=== PATIENT | male | born 1980 | race Caucasian/White ===

== ENCOUNTER 2018-04-02 08:28 | Observation (INO) | payer OTHER ==
[~2018-04-02] VITALS: Ht 198.1 cm; Wt 81.7 kg
[~2018-04-02 08:28] MED LIST: Crutch1 EACH MISC; Ultram50 MG PO
[2018-04-02 09:24] LABS: BASOPHILS ABSOLUTE AUTO 0.11 K/mm3 (0.00-0.23); BASOPHILS PERCENT AUTO 1 % (0-2); EOSINOPHILS ABSOLUTE AUTO 0.53 K/mm3 (0.00-0.68); EOSINOPHILS PERCENT AUTO 4 % (0-6); Hematocrit 40.7 % (37.0-53.0); Hemoglobin 14.4 g/dL (13.5-17.5); IMMATURE GRAN ABSOLUTE AUTO 0.08 K/mm3 (0.00-0.10); IMMATURE GRAN PERCENT AUTO 1 % (0-1); LYMPHOCYTES ABSOLUTE AUTO 3.18 K/mm3 (0.84-5.20); LYMPHOCYTES PERCENT AUTO 26 % (21-46); MONOCYTES ABSOLUTE AUTO 0.86 K/mm3 (0.16-1.47); MONOCYTES PERCENT AUTO 7 % (4-13); Mean Corpuscular HGB 34.1 pg (26.0-34.0); Mean Corpuscular HGB Conc 35.4 g/dL (31.5-36.5); Mean Corpuscular Volume 96 fL (80-100); Mean Platelet Volume 9.7 fL (9.1-12.4); NEUTROPHILS ABSOLUTE AUTO 7.62 K/mm3 (1.96-9.15); NEUTROPHILS PERCENT AUTO 62 % (41-73); Platelet Count 296 K/mm3 (150-400); RDW Coefficient Variation 12.6 % (11.7-14.2); Red Blood Cell Count 4.22 M/mm3 (4.30-5.90); White Blood Cell Count 12.38 K/mm3 (4.00-11.30)
[2018-04-02 09:39] LABS: Alanine Aminotransfer (ALT/SGP 22 U/L (12-78); Albumin, Blood 4.4 g/dL (3.4-5.0); Albumin/Globulin Ratio 1.2 (0.8-1.8); Alk Phos 57 U/L (50-136); Anion Gap 6 mmol/L (6-16); Aspartate Aminotrans (AST/SGOT 23 U/L (12-37); Bilirubin, Total 0.5 mg/dL (0.1-1.0); Blood Urea Nitrogen 13 mg/dL (8-24); Bun/Creatinine Ratio 17.8 (12.0-20.0); CO2, Blood 28 mmol/L (21-32); Calcium, Blood 8.3 mg/dL (8.5-10.1); Chloride, Blood 104 mmol/L (98-108); Creatinine, Blood 0.73 mg/dL (0.60-1.20); Globulin, Blood 3.6 g/dL (2.2-4.0); Glomerular Filtration Rate >60 (60-); Glucose, Blood 91 mg/dL (70-99); Potassium, Blood 3.3 mmol/L (3.5-5.5); Sodium, Blood 138 mmol/L (136-145)
[2018-04-02 09:49] LABS: International Normalized Ratio 0.99; Prothrombin Time Results 10.5 Sec (9.7-11.5)
[2018-04-02 12:07] LABS: Hematocrit 36.8 % (37.0-53.0); Hemoglobin 13.3 g/dL (13.5-17.5)
--- NOTE | 2018-04-02 19:46 | NUR ---
04/02/181945 Liliam Montero History, Chart, Medications and Allergies reviewed before start of procedure.Patient confirms NPO status and agrees with scheduled surgery.ANESTHESIA CASE, SEE RECORD FOR CARE.
[2018-04-02 21:25] LABS: Hematocrit 37.6 % (37.0-53.0); Hemoglobin 13.3 g/dL (13.5-17.5)
--- NOTE | 2018-04-02 21:48 | NUR ---
PT RETURNED FROM EGD AWAKE, ALERT AND SOMEWHAT RESTLESS. PT VERY QUICKLY WANTED TO GO OUTSIDE TO SMOKE. PT WAS TAKEN OUTSIDE BY HIS FAMILY IN A W/C FOR HIS SAFETLY SINCE HE IS STILL RECOVERING FROM ANTHESIA. PT RETURNED FROM SMOKING AND IMMEDIATELY REQUESTED THAT HIS TWO IV'S BE REMOVED BECAUSE HE WANTED TO LEAVE SOON HIS H/H RETURNED FROM LAB. PT WAS REDIRECTED FOR A SHORT WHILE, BUT HE CONTINUED TO WANDERIN AROUND THE HALLWAY OUTSIDE OF HIS ROOM. WHEN HIS H/H RETURNED, HE WAS NOTIFIED THAT HIS HGB WAS 13.2. HE IMMEDIATELY STATED THAT "THE DOCTOR SAID THAT I COULD GO IF MY BLOOD WORK OKAY." HE INSISTED THAT HE WANTS TO LEAVE IMMEDIATELY. PT INSISTED THAT HIS IV'S BE REMOVED IMMEDIATELY. THE CHARGE NURSE CALLED THE HOSPITALIST FOR DISCHARGE ORDERS. PT AND HIS FAMILY ARE NOW WAITING FOR A DECISION ABOUT HIS DISCHARGE. PT'S FAMILY DENIES THAT PT IS DETOXING OR THAT HE DRINKS EVERY DAY.
== END 2018-04-02 21:57 | disposition home or self-care (01) ==
LOC: ER 08:28 → MEDS 08:29
PROVIDERS: Internal Medicine Gastroenterology; Physician Assistant; ADMIT Internal Medicine
PROC: 0DJ08ZZ Inspection of Upper Intestinal Tract, Via Natural or Artificial Opening Endoscopic (ICD-10-PCS; principal; 2018-04-02 18:00)
DX: K22.6 Gastro-esophageal laceration-hemorrhage syndrome (principal); K20.9 Esophagitis, unspecified; K29.00 Acute gastritis without bleeding; D64.9 Anemia, unspecified; F10.20 Alcohol dependence, uncomplicated; E87.6 Hypokalemia; M77.11 Lateral epicondylitis, right elbow; R20.0 Anesthesia of skin; F17.210 Nicotine dependence, cigarettes, uncomplicated; F17.220 Nicotine dependence, chewing tobacco, uncomplicated
CPT/HCPCS: 36415; 71045; 80053; 85014; 85018; 85025; 85610; 85730; 86850; 86900; 86901; 96361; 96365; 96366; 96374; 96375; 96376; 99285-25; C9113; G0378; J2250; J3475; J3480; J7030; J7042; J7120

== ENCOUNTER 2018-11-21 19:45 | Emergency (ER) | payer OTHER ==
[~2018-11-21] VITALS: Ht 195.6 cm; Wt 84.8 kg
[2018-11-21 20:03] LABS: BASOPHILS ABSOLUTE AUTO 0.18 K/mm3 (0.00-0.23); BASOPHILS PERCENT AUTO 1 % (0-2); EOSINOPHILS ABSOLUTE AUTO 0.49 K/mm3 (0.00-0.68); EOSINOPHILS PERCENT AUTO 3 % (0-6); Hematocrit 41.7 % (37.0-53.0); IMMATURE GRAN ABSOLUTE AUTO 0.27 K/mm3 (0.00-0.10); IMMATURE GRAN PERCENT AUTO 2 % (0-1); LYMPHOCYTES ABSOLUTE AUTO 4.21 K/mm3 (0.84-5.20); LYMPHOCYTES PERCENT AUTO 24 % (21-46); MONOCYTES ABSOLUTE AUTO 0.95 K/mm3 (0.16-1.47); MONOCYTES PERCENT AUTO 6 % (4-13); Mean Corpuscular HGB 34.2 pg (26.0-34.0); Mean Corpuscular Volume 95 fL (80-100); Mean Platelet Volume 9.7 fL (9.1-12.4); NEUTROPHILS PERCENT AUTO 65 % (41-73); Platelet Count 373 K/mm3 (150-400); RDW Coefficient Variation 12.2 % (11.7-14.2); RDW Standard Deviation 42.8 fL (35.1-46.3); Red Blood Cell Count 4.38 M/mm3 (4.30-5.90)
[2018-11-21 20:24] LABS: International Normalized Ratio 0.97; Prothrombin Time Results 10.3 Sec (9.7-11.5)
[2018-11-21 20:34] LABS: Alanine Aminotransfer (ALT/SGP 32 U/L (12-78); Albumin, Blood 4.1 g/dL (3.4-5.0); Alk Phos 75 U/L (50-136); Anion Gap 9 mmol/L (6-16); Aspartate Aminotrans (AST/SGOT 71 U/L (12-37); Bilirubin, Total 0.7 mg/dL (0.1-1.0); Blood Urea Nitrogen 8 mg/dL (8-24); Bun/Creatinine Ratio 11.1 (12.0-20.0); CO2, Blood 24 mmol/L (21-32); Calcium, Blood 8.5 mg/dL (8.5-10.1); Chloride, Blood 105 mmol/L (98-108); Creatinine, Blood 0.72 mg/dL (0.60-1.20); Globulin, Blood 4.1 g/dL (2.2-4.0); Glomerular Filtration Rate >60 (60-); Glucose, Blood 119 mg/dL (70-99); Sodium, Blood 138 mmol/L (136-145); Total Protein, Blood 8.2 g/dL (6.4-8.2)
[2018-11-21 20:38] LABS: Ethanol (Alcohol), Blood, Med 351 mg/dL
== END 2018-11-21 20:43 ==
LOC: ER 19:45
PROVIDERS: Emergency Medicine
DX: S00.83XA Contusion of other part of head, initial encounter (principal); S00.01XA Abrasion of scalp, initial encounter; F10.129 Alcohol abuse with intoxication, unspecified; S20.212A Contusion of left front wall of thorax, initial encounter; R26.0 Ataxic gait; F17.200 Nicotine dependence, unspecified, uncomplicated; V59.10XA Passenger in pick-up truck or van injured in collision with unspecified motor vehicles in nontraffic accident, initial encounter
CPT/HCPCS: 36415; 70450; 80053; 83690; 85025; 85610; 85730; 86850; 86900; 86901; 99284-25; G0480

== ENCOUNTER 2019-08-14 12:53 | Emergency (ER) | payer SELFPAY ==
[~2019-08-14] VITALS: Ht 198.1 cm; Wt 81.7 kg
[2019-08-14] MEDS ORDERED: OXYC5 PO (16:22)
== END 2019-08-14 16:18 | disposition home or self-care (01) ==
LOC: ER 12:53
DX: S31.102A Unspecified open wound of abdominal wall, epigastric region without penetration into peritoneal cavity, initial encounter (principal); F17.200 Nicotine dependence, unspecified, uncomplicated; W32.0XXA Accidental handgun discharge, initial encounter
CPT/HCPCS: 36415; 74177; 99285-25; Q9967

== ENCOUNTER 2019-08-19 09:03 | Day surgery (SDC) | payer SELFPAY ==
[~2019-08-19 09:03] MED LIST changes: +OXYC5 PO
== END 2019-08-19 11:32 | disposition home or self-care (01) ==
LOC: ORSCSDS 09:03
PROVIDERS: Surgery
PROC: 0WC Anatomical Regions, General, Extirpation (ICD-10-PCS; principal; 2019-08-19 10:15)
DX: S31.109A Unspecified open wound of abdominal wall, unspecified quadrant without penetration into peritoneal cavity, initial encounter (principal); W33.02XA Accidental discharge of hunting rifle, initial encounter; F17.210 Nicotine dependence, cigarettes, uncomplicated
CPT/HCPCS: J0690; J1100; J2704; J3010

== ENCOUNTER 2021-05-05 14:55 | Emergency (ER) | payer BC ==
[~2021-05-05] VITALS: Ht 198.1 cm; Wt 81.7 kg
== END 2021-05-05 17:44 | disposition home or self-care (01) ==
LOC: ER 14:55
DX: S92.321A Displaced fracture of second metatarsal bone, right foot, initial encounter for closed fracture (principal); S92.331A Displaced fracture of third metatarsal bone, right foot, initial encounter for closed fracture; F17.200 Nicotine dependence, unspecified, uncomplicated; X58.XXXA Exposure to other specified factors, initial encounter
CPT/HCPCS: 29515; 73630; 99283-25